=== PATIENT | male | born 1990 | race Caucasian/White ===

== ENCOUNTER 2021-01-29 22:17 | Emergency (ER) | payer SELFPAY ==
[~2021-01-29] VITALS: Ht 175.3 cm; Wt 74.8 kg
[2021-01-29 22:25] VITALS: BP_SYST 127
[2021-01-29] MEDS ORDERED: LIDOCAINE 1% 10 MG/ML, 20 ML MDV INJ ONE (23:30)
[2021-01-29] MEDS ORDERED: DIPH-TET-PERTUS Vaccine 0.5 ML VIAL (ADACEL) I.M. ONE (23:30)
[2021-01-30 00:38] VITALS: BP_SYST 127
== END 2021-01-30 00:38 | disposition home or self-care (01) ==
LOC: SED 22:17
DX: S61.216A Laceration without foreign body of right little finger without damage to nail, initial encounter (principal); W25.XXXA Contact with sharp glass, initial encounter; Y93.89 Activity, other specified; Y92.89 Other specified places as the place of occurrence of the external cause; Y99.8 Other external cause status
CPT/HCPCS: 90715; 99283

== ENCOUNTER 2022-12-30 03:18 | Emergency (ER) | payer OTHER ==
[~2022-12-30] VITALS: Ht 167.6 cm; Wt 65.8 kg
--- NOTE | 2022-12-30 03:25 | NUR ---
EDP AT BEDSIDE FOR INITIAL ASSESSMENT AND TREATMENT.
[2022-12-30 03:29] VITALS: BP_SYST 112
[2022-12-30] MEDS ORDERED: MORPHINE 4 MG INJ. 4 MG/ML VIAL IVP ONE ×2 (04:00→04:45)
[2022-12-30] MEDS ORDERED: ONDANSETRON HCL 4 MG/2 ML VIAL IVP ONE ×2 (04:00→04:45)
--- NOTE | 2022-12-30 04:01 | NUR ---
PATIENT AMBULATORY TO ER AAOX4 WITH LEFT SHOULDER DISLOCATED.
--- NOTE | 2022-12-30 04:02 | NUR ---
EDP IS REDUCING THE LEFT SHOULDER.
[2022-12-30] MEDS ORDERED: PROPOFOL 200MG/ 20ML VIAL (DIPRIVAN) IV ONE (04:30)
--- NOTE | 2022-12-30 04:45 | NUR ---
PATIENT ON [employer], RT AND EDP AT BEDSIDE, CONSENT OBTAINED TIME OUT DONE FOR REDUCTION OF LEFT SHOULDER.
--- NOTE | 2022-12-30 04:48 | NUR ---
MORPHINE 4 MG GIVEN FOR 10/10 PAIN.
--- NOTE | 2022-12-30 04:49 | NUR ---
CONSCIOUS SEDATION STARTED WITH PROPOFOL 50 MG, TOLERATED WELL.
--- NOTE | 2022-12-30 05:01 | NUR ---
PATIENT LEFT SHOULDER IN PLACE SLING APPLIED, WILL CONTINUE TO MONITOR.
[2022-12-30 06:19] VITALS: BP_SYST 115
--- NOTE | 2022-12-30 06:21 | NUR ---
Patient given written and verbal discharge instructions and verbalizes understanding. ER MD discussed with patient the results and treatment provided. Patient in stable condition. ID arm band removed. IV catheter removed intact and dressing applied, no active bleeding. Rx of given. Patient educated on pain management and to follow up with PMD. Pain Scale 0. Opportunity for questions provided and answered. Medication side effect fact sheet provided.
== END 2022-12-30 06:21 | disposition home or self-care (01) ==
LOC: SED 03:18
DX: S43.015A Anterior dislocation of left humerus, initial encounter (principal); M24.212 Disorder of ligament, left shoulder; Z79.899 Other long term (current) drug therapy; X50.1XXA Overexertion from prolonged static or awkward postures, initial encounter; Y93.84 Activity, sleeping; Y92.89 Other specified places as the place of occurrence of the external cause; Y99.8 Other external cause status
CPT/HCPCS: 99291; 23650; 96374; 96375; 73030; 99152; 73020; J2405; J2704; J2270; 99285

== ENCOUNTER 2023-05-17 06:04 | Emergency (ER) | payer OTHER, MEDICAID ==
[~2023-05-17] VITALS: Ht 172.7 cm; Wt 70.3 kg
[2023-05-17 06:10] VITALS: BP_SYST 119; PULSE 86; RESP 16; TEMP 98.1; O2SAT 97
[2023-05-17] MEDS ORDERED: KETAMINE HCL 500 MG/10 ML VIAL IVP ONE (06:30)
[2023-05-17] MEDS ORDERED: KETAMINE HCL IN 0.9 % NACL 50 MG/5 ML SYRINGE IVP ONE (06:45)
[2023-05-17 08:30] VITALS: BP_SYST 126; PULSE 89; RESP 18; TEMP 98; O2SAT 99
== END 2023-05-17 08:19 | disposition home or self-care (01) ==
LOC: SED 06:04
DX: S43.015A Anterior dislocation of left humerus, initial encounter (principal); Z79.899 Other long term (current) drug therapy; W06.XXXA Fall from bed, initial encounter; Y93.89 Activity, other specified; Y92.89 Other specified places as the place of occurrence of the external cause; Y99.8 Other external cause status
CPT/HCPCS: 73030; 99285